=== PATIENT | female | born 1980 ===

== ENCOUNTER 2018-02-23 23:37 | Inpatient (IN) | payer BC ==
[2018-02-24 00:07] VITALS: BMI 28.8
[2018-02-24] MEDS: Lactated Ringer's 1,000 ML IV SCH ×2 (00:15→12:24)
[2018-02-24] MEDS ORDERED: Sodium Citrate/Citric Acid 15 ml Sol PO ONE (00:15)
--- NOTE | 2018-02-24 00:22 | OBADHP ---
Datetime: 02/24/2018 00:14 Admit Comment, IP Provider: Pt presents to L_D with complaints of contractions since 6am. Pt has his tory of repeat section and will have repeat section. POBHx: C/S x 1 2015 PMHx: none PSHx: none Social: negative x 2 Meds: none ALL: NKDA FHx: none PE: -3 A/P 36 @ 29 weeks presents in labor for repeat section. 1) VSS: afebrile 2) Admit to L_D 3) NPO 4) IVF 5) Labs _ Abx Pelvic Type - PN: Adequate Extremities - PN: Normal Abdomen - PN: Normal Back - PN: Normal Breast - PN: Normal Lungs - PN: Normal Heart - PN: Normal Thyroid - PN: Normal Neurologic - PN: Normal HEENT - PN: Normal General - PN: Normal FHR - Baseline A Provider: 150 Membranes, Provider: Intact Contraction Comments Provider: q3min Comments, ACOG Physical Exam: PE: 3 IP Chief Complaint: Uterine contractions; Maternal discomfort NICHD Variability Prov Fetus A: Moderate 6-25bpm NICHD Accel Fetus A IP Provider: [id number] NICHD Decel Fetus A IP Provider: None Dilatation, Provider: 1 Genitourinary Exam: Normal DTRs - PN: Normal EGA AdmitDate IP: 39.0 IP Adm Impression: Term, intrauterine ; Active labor IP Admit Plan: Admit to unit; Initiate Section protocol
[2018-02-24 00:50] LABS: BASO % 0.3 % (0.0-2.0); EOS # 0.1 K/uL (0.0-0.7); EOS % 0.7 % (0.0-4.0); HEMOGLOBIN 10.7 g/dL (11.0-16.0); LYMPH # 1.8 K/uL (1.0-4.3); LYMPH % 14.7 % (20.0-40.0); MEAN CELL VOLUME 86.8 fL (81.0-99.0); MEAN CORPUSCULAR HEMOGLOBIN 29.8 pg (27.0-31.0); MEAN CORPUSCULAR HGB CONC 34.3 g/dL (33.0-37.0); MEAN PLATELET VOLUME 9.9 fL (7.2-11.7); MONO # 0.9 K/uL (0.0-0.8); MONO % 7.1 % (0.0-10.0); NEUT # 9.3 K/uL (1.8-7.0); NEUT % 77.2 % (50.0-75.0); RBC 3.61 Mil/uL (3.80-5.20); RED CELL DISTRIBUTION WIDTH 13.8 % (11.5-14.5)
[2018-02-24 00:53] LABS: SQUAMOUS EPITHIAL 1 /hpf (0-5); URINE BACTERIA RARE (<OCC); URINE BILIRUBIN NEGATIVE (NEGATIVE); URINE BLOOD NEGATIVE (NEGATIVE); URINE CLARITY Clear (Clear); URINE COLOR Straw (YELLOW); URINE GLUCOSE (UA) NORMAL (Normal); URINE LEUKOCYTE ESTERASE NEG Leu/uL (Negative); URINE PROTEIN NEGATIVE (NEGATIVE); URINE UROBILINOGEN NORMAL mg/dL (0.2-1.0)
[2018-02-24] MEDS ORDERED: ceFAZolin IV 2 gm in Dextrose 2 GM/50 ML BAG IVPB SCH (01:00)
--- NOTE | 2018-02-24 01:00 | OBADHP ---
Datetime: 02/24/2018 00:14 IP Hx Assessment: The History has been Reviewed and is Current Dilatation, Provider: 2 Effacement, Provider: 80 Station, Provider: -2 EGA AdmitDate IP: 39.0
[2018-02-24] MEDS ORDERED: Oxycodone/Acetaminophen 5/325 mg Tab PO PRN (01:01)
[2018-02-24 01:13] LABS: BLOOD UREA NITROGEN 8 mg/dL (7-17); CALCIUM 9.3 mg/dl (8.6-10.4); GFR AFRICAN-AMERICAN > 60; GFR NON-AFRICAN AMERICAN > 60
[2018-02-24] MEDS ORDERED: Propofol 10 mg/ml Inj (20 ML) ONE (01:13)
[2018-02-24] MEDS ORDERED: ePHEDrine 50 mg/ml Inj ONE (01:13)
[2018-02-24 01:45] LABS: HEPATITIS B SURFACE AG Negative (NEGATIVE)
--- NOTE | 2018-02-24 02:32 | OBDS ---
DELIVERY PERSONNEL Delivery Doctor: Sudheer Solomon MD Scrub Nurse: Negin Gómez [employer] Warehouse Receiving Supervisor: Rhoda Singh RN Anesthesiologist: Cristofer Cruz MD MATERNAL INFORMATION Delivery Anesthesia: Spinal Estimated Blood Loss (ml): 900 Placenta Cultured: No RN Comments: delivered a live baby boy via a repeat with an score of 1 minute=9; 5 m inutes=9 Provider Comments: dr solomon private baby deliverd in single footling breech. end clean uterine aytont. extra pitocin, hemabat and cytotec given cord gas send placente rto pathogy 9/9 no com LABOR SUMMARY EDC: 03/02/2018 00:00 No. Babies in Womb: 1 Attempted: No Labor Anesthesia: None LABOR INFORMATION Steroids Given: None MEMBRANES Membranes Rupture Method: Artificial Amniotic Fluid Color: Clear STAGES OF LABOR Stage 3 hrs: 0 Stage 3 min: 1 CSECTION DELIVERY Primary Indication: Breech Presentation Other Primary Indication: Repeat CSection Urgency: Non Elective CSection Incidence: Repeat Labor: Labor Elective: Nonelective CSection Incision: Lower Uterine Transverse BABY A INFORMATION Infant Delivery Date/Time: 02/24/2018 01:34 Method of Delivery: Born in Route : No : N/A Forceps: N/A Vacuum Extraction: N/A Shoulder Dystocia : No SHOULDER DYSTOCIA BABY A Delivery Date/Time: 02/24/2018 01:34 PRESENTATION/POSITION BABY A Presentation: Breech Cephalic Presentation: N/A Breech Presentation: Calin PLACENTA INFORMATION BABY A Placenta Delivery Time : 02/24/2018 01:35 Placenta Method of Delivery: Manual Removal Placenta Status: Delivered SCORES BABY A Heart Rate 1 min: >100 bpm Resp Effort 1 min: Good Cry Reflex Irritability 1 min: Cough or Sneeze or Pulls Away Muscle Tone 1 min: Active Motion Color 1 min: Body Norman, Extremities Blue SCORE 1 MIN: 9 Heart Rate 5 min: >100 bpm Resp Effort 5 min: Good Cry Reflex Irritability 5 min: Cough or Sneeze or Pulls Away Muscle Tone 5 min: Active Motion Color 5 min: Body Norman, Extremities Blue SCORE 5 MIN: 9 INFORMATION BABY A Gestational Age at Delivery: 39.1 Gestational Status: Term Infant Outcome : Liveborn Infant Condition : Stable Sex: Male IDENTIFICATION/MEDS BABY A ID Band Number: [id number] ID Band Location: Left Leg; Left Arm Sensor Applied: Yes Sensor Number: [id number] Sensor Location : Cord Clamp Vitamin K Given : Not Given Erythromycin Given: Not Given WEIGHT/LENGTH BABY A Birthweight (gms): 3375 Infant Weight (lb): 7 Weight (oz): 7 Infant Length Inches: 20.00 Infant Length cms: 50.8 CORD INFORMATION BABY A No. Cord Vessels: 3 Nuchal Cord : N/A Cord Blood Taken: Yes Infant Suction: Mouth ASSESSMENT BABY A Complications: None Physical Findings at Delivery: Within Normal Limits Respirations: Appears Normal Director Staffing/ALS Called : No Care By: Dr. Forrester Transferred To: [facility]
--- NOTE | 2018-02-24 02:34 | PCM.SURG1 ---
Surgeon's Initial Post Op Note - Surgeon's Notes Surgeon: dr artis Oreman: dr murray Type of Anesthesia: Spinal Anesthesia Administered By: dr gamez Pre-Operative Diagnosis: 38 yr at 39+weeks breech/labor/previous cesear section Operative Findings: see yhe op reort Post-Operative Diagnosis: same Operation Performed: repeat section Specimen/Specimens Removed: cord gas blood. placente Estimated Blood Loss: EBL {In ML}: 900 Blood Products Given: N/A Drains Used: No Drains Post-Op Condition: Good Date of Surgery/Procedure: 02/24/18 Time of Surgery/Procedure: 03:00
[2018-02-24] MEDS ORDERED: HYDROmorphone 0.5 mg/0.5 ml ISec IVP PRN (02:39)
[2018-02-24] MEDS ORDERED: DiphenhydrAMINE 50 mg/ml Inj IVP PRN (02:40)
[2018-02-24 07:44] LABS: BASO % 0.2 % (0.0-2.0); EOS % 0.1 % (0.0-4.0); HEMOGLOBIN 9.3 g/dL (11.0-16.0); LYMPH # 0.5 K/uL (1.0-4.3); LYMPH % 2.8 % (20.0-40.0); MEAN CELL VOLUME 87.9 fL (81.0-99.0); MEAN CORPUSCULAR HEMOGLOBIN 29.9 pg (27.0-31.0); MEAN PLATELET VOLUME 9.6 fL (7.2-11.7); MONO # 0.8 K/uL (0.0-0.8); MONO % 4.6 % (0.0-10.0); NEUT # 16.1 K/uL (1.8-7.0); NEUT % 92.3 % (50.0-75.0); PLATELET COUNT 255 K/uL (130-400); WHITE BLOOD COUNT 17.4 K/uL (4.8-10.8)
[2018-02-24 08:28] LABS: BANDS 18 % (0-2); LYMPHOCYTE 5 % (20-40); METAMYELOCYTE 1 % (0-0); MONOCYTE 1 % (0-10); MYELOCYTE 1 % (0-0); NEUTROPHIL 74 % (50-75); TOTAL CELLS COUNTED 100
[2018-02-24 08:29] LABS: HYPOCHROMIC SLIGHT; PLATELET ESTIMATE NORMAL (NORMAL)
[2018-02-24] MEDS ORDERED: Tdap Vaccine 0.5 ml Vial (10-64 yrs) IM ONE (10:01)
[2018-02-24] MEDS: Simethicone 80 mg Chewtab PO SCH ×4 (12:22→21:32)
[2018-02-24] MEDS: Oxycodone/Acetaminophen 5/325 mg Tab PO PRN (20:07)
[2018-02-25] MEDS ORDERED: Bisacodyl 5mg EC Tab PO ONE (01:01)
[2018-02-25] MEDS: Simethicone 80 mg Chewtab PO SCH ×4 (10:17→21:10)
[2018-02-25] MEDS ORDERED: Esmolol 100 mg/10ml Inj IV ONE (11:59)
[2018-02-25] MEDS: Oxycodone/Acetaminophen 5/325 mg Tab PO PRN (21:08)
[2018-02-26] MEDS: Simethicone 80 mg Chewtab PO SCH ×4 (09:34→21:41)
--- NOTE | 2018-02-26 20:46 | OBPPN ---
Datetime: 02/26/2018 20:42 PP Pain Prov: Within normal limits PP Nausea Prov: Denies PP Flatus Prov: Yes PP BM Prov: No PP Abdomen/Uterus Prov: Normal PP Lochia Prov: Normal PP Extremities Prov: Normal PP C/S Incision Prov: Normal PP Comments Phys Exam Prov: Doing well. Ambulating. PP Impression Prov: Normal progression PP Plan Prov: Continue present management PP Progress Note Prov: Continue post op care Encourage ambulation IP PP Procedures: None Vital Signs Provider PP: Reviewed
[2018-02-27 00:07] VITALS: RESP 20; TEMP 97.5
[2018-02-27 08:05] VITALS: BP 101/68; PULSE 80; O2SAT 100
[2018-02-27] MEDS: Simethicone 80 mg Chewtab PO SCH ×2 (09:06→13:34)
[2018-02-27 14:18] LABS: BASO # 0.1 K/uL (0.0-0.2); BASO % 0.9 % (0.0-2.0); EOS # 0.2 K/uL (0.0-0.7); EOS % 2.8 % (0.0-4.0); HEMOGLOBIN 9.2 g/dL (11.0-16.0); LYMPH # 1.5 K/uL (1.0-4.3); LYMPH % 17.8 % (20.0-40.0); MEAN CELL VOLUME 88.7 fL (81.0-99.0); MEAN CORPUSCULAR HEMOGLOBIN 29.4 pg (27.0-31.0); MEAN CORPUSCULAR HGB CONC 33.1 g/dL (33.0-37.0); MEAN PLATELET VOLUME 9.3 fL (7.2-11.7); MONO # 0.4 K/uL (0.0-0.8); MONO % 5.3 % (0.0-10.0); NEUT % 73.2 % (50.0-75.0); NRBC % 0.1 % (0.0-2.0); PLATELET COUNT 335 K/uL (130-400); RBC 3.13 Mil/uL (3.80-5.20); RED CELL DISTRIBUTION WIDTH 14.3 % (11.5-14.5)
[2018-02-27 14:21] LABS: WHITE BLOOD COUNT 8.2 K/uL (4.8-10.8)
[2018-02-27 14:44] LABS: BANDS 6 % (0-2); EOSINOPHIL 3 % (0-4); LYMPHOCYTE 21 % (20-40); MONOCYTE 3 % (0-10); NEUTROPHIL 67 % (50-75); PLATELET ESTIMATE NORMAL (NORMAL); TOTAL CELLS COUNTED 100
[2018-02-27 14:45] LABS: HYPOCHROMIC SLIGHT
--- NOTE | 2018-02-27 14:54 | OBPPN ---
Datetime: 02/27/2018 14:31 PP Pain Prov: Within normal limits PP Nausea Prov: Denies PP Flatus Prov: Yes PP BM Prov: Yes PP Breasts Prov: Normal PP Heart Prov: Normal PP Lungs Prov: Normal PP Abdomen/Uterus Prov: Normal PP Lochia Prov: Normal PP Vulva/Perineum Prov: Not Done PP CVA Tenderness Prov: Normal PP Extremities Prov: Normal PP C/S Incision Prov: Normal PP Progress Prov: Normal PP Comments Phys Exam Prov: Back: minimal tender at spianl needel insertion site. NO CVA tenderness Abdomen: Soft. Non distended. Fundus firm, mobile, minimally tender, 2 FB below umbilicus. Incisio n with subcutaneous closure - clean, dry and intact. Mild lochia rubra. Extremities: no calf tenderness, or edema All other systems erviewed and are negative PP Impression Prov: Normal progression PP Plan Prov: Discharge PP Progress Note Prov: Asked by Dr. Solomon to evaluate patient - planned discharge home today. Angy powlel received in bed, room 451. Patient sitting on bed, older woman, and first child alsp pres ent. Patient in good spirits. Voiding and ambulating without difficulty. Reports abdominal cramping whenever she breastfeeds - relieved with motrin. Incisional pain, pain scale 4/10 - also relieved wit h motrin. Lastly, reports back pain in region of spinal insertion point. Denies shortness of breath , dizziness or chest pain. P.E.: as above. WD in NAD. Awake, alert, and oriented to time, person and place. Pleasant and co operative - POD#2 H/H 9.3/27.2. Assessment: 38 y.o. P2, S/P C/S #s, Breech presentation in labor. Afebrile, vital signs stable. Pa leslie's lower abdominal/ uterine crampy pain is relieved with motrin. Also, incisional pain. Patient reassured, all of these episodes of discomfort are within normal limits. Also, patient advised can a pply cold compress to laci every 6-8 hours. Patietn expressed an understanding; All questions answered . H/H noted; chronic and hemodynacically stable. Plan: 1) Patient is stable for discharge.
[2018-02-27] MEDS ORDERED: Measles, Mumps, and Rubella 0.5 ML VIAL SC ONE (14:55)
== END 2018-02-27 16:25 | disposition home or self-care (01) | DRG 766 ==
LOC: C.EROB 23:37 → C.4D 02-24 00:11 → C.4M 02-24 06:15
PROVIDERS: ADMIT Obstetrics & Gynecology; ATTEND Obstetrics & Gynecology
PROC: 10D00Z1 Extraction of Products of Conception, Low, Open Approach (ICD-10-PCS; principal; 2018-02-24)
DX: O32.8XX0 Maternal care for other malpresentation of fetus, not applicable or unspecified (principal); O34.211 Maternal care for low transverse scar from previous cesarean delivery; Z3A.39 39 weeks gestation of pregnancy; Z37.0 Single live birth